=== PATIENT | female | born 1995 | race Caucasian/White ===

== ENCOUNTER → 2017-08-02 | Outpatient (CLI) | payer BC ==
[~2017-08-02] MED LIST: BCPILLS PO
[2017-08-05 14:46] LABS: HERPES SIMPLEX CULT SOURCE GENITAL-VULVA; HERPES SIMPLEX VIRUS CULT ISOLATED (NOT ISOLATED)
[2017-08-06 07:24] LABS: HSVTYPE1REFLEX ONLY!DON'T ORDR ISOLATED (NOT ISOLATED); HSVTYPE2REFLEX ONLY!DON'T ORDR NOT ISOLATED (NOT ISOLATED)
== END | disposition home or self-care (01) ==
LOC: C.LABSPEC 15:35
PROVIDERS: ATTEND Obstetrics & Gynecology
DX: A60.00 Herpesviral infection of urogenital system, unspecified (principal)

== ENCOUNTER 2019-01-02 22:00 | Inpatient (IN) ==
[2019-01-02] MEDS ORDERED: OXYTOCIN 30 UNITS/500 ML BAG IV PRN (22:46)
[2019-01-02] MEDS ORDERED: LACTATED RINGER'S 1,000 ML IV PRN (22:46)
[2019-01-02 23:06] LABS: Hemoglobin 11.2 g/dL (12.0-16.0); Mean Corpuscular Volume 89.7 fL (80-100); Mean Platelet Volume 9.3 fL (7.4-10.4); Platelet Count 220 K/uL (130-400); RDW Coefficient of Variation 13.7 % (11.5-14.5); RDW Standard Deviation 44.9 fL (36.4-46.3); Red Blood Count 3.68 M/uL (4.2-5.4); White Blood Count 17.01 K/uL (4.8-10.8)
[2019-01-02 23:09] LABS: Mean Corpuscular Hgb Conc 33.9 g/dL (32-36)
[2019-01-03] MEDS ORDERED: PROMETHAZINE HCL INJ 25 MG/ML 1 ML VIAL IM STA (01:01)
[2019-01-03] MEDS ORDERED: MoRPHine SULFATE 10 MG/ML CARP/VIAL IM STA (01:01)
--- NOTE | 2019-01-03 01:13 | History & Physical Report ---
Date of Service January 03, 2019 Assessment & Plan (1) labor: I had extensive discussion with patient regarding exam findings and prognosis. I called MFM on-call at [place] (Dr Maravilla) for consultation and advice. Patient is pre-viable, and NICU at [place] does not accept babies until at least 23 weeks if they are large enough. Steroids are not advised until 23w. If PPPROM occurs without imminent delivery, Dr Maravilla recommends antibiotics. Patient was offered conservative management - to admit and observe labor. Patient was offered transfer at [place], but we also discussed that there will really be nothing to do until she is beyond the 23w threshold. If the baby is still breech at 23w, this would involve a classical section. Patient was also offered augmentation of labor with AROM and possibly pitocin/cytotec - she declines at this time. She would like to just monitor symptoms for now. Requesting pain medication - morphine/phenergan IM given. Questions answered for patient, FOB and patient's mother. Discussed that I expect her labor to continue, and anticipate she will experience SROM at some point. (2) 22 weeks gestation of : History of Present Illness Chief Complaint: Vaginal bleeding Primary Care Provider: NO PCP 23yo @ 22 11/24 presented to L&D with pelvic cramping and vaginal bleeding. This has been worsening throughout the day, started after she had intercourse. No leaking of fluid. + movement. is complicated by short cervix diagnosed at 20w anatomy ultrasound - she was started on vaginal progesterone with plans to recheck at 24w office visit. She additionally has h/o genital herpes, depression/anxiety, ASCUS pap with + HR HPV. Allergies Allergy/AdvReac Type Severity Reaction Status Date / Time No Known Allergies Allergy Unknown Verified 01/02/19 23:02 Home Medications Home Medications Medication Instructions Recorded Confirmed Type vit-iron fum-folic ac 1,000 mg PO DAILY 01/03/19 01/03/19 History [ Vitamin] progesterone micronized 200 mg PO DAILY 01/03/19 01/03/19 History Patient History Medical History [place] teeth extracted Social History Preferred Language: Uzbek Communication Ability: Effective Internal Sales Required: No Beliefs That Will Affect Care: None marital status: Single Current Living Situation: Spouse Other Information That Helps Us Care for You: No Feels Safe at Home: Yes Safety Concerns: Feels Safe At This Time Smoking Status: Never smoker Hx Alcohol Use: No Hx Substance Use: No Review of Systems All systems reviewed & are unremarkable except as noted in HPI & below Physical Exam Vital Signs (Past 24 Hours): Last Vital Signs Pulse 114 H 01/02/19 22:20 Resp 18 01/03/19 00:42 BP 129/69 01/02/19 22:20 Physical Exam: Gen AAOx3 NAD CV RRR L CTAB Abd soft gravid NTTP Ext no edema Sterile speculum exam: bulging membranes in vagina, scant bleeding Gentle digital exam: no palpable cervix around membranes Limited bedside ultrasound: breech, anterior placenta. Fetus is intrauterine. Cervix appears 2-3cm dilated, with approx 4-5cm of bulging membranes in vagina. FHT 140s. (1) labor labor trimester: second trimester labor delivery status: w [facility] delivery Qualified Code(s): O60.02 - labor without delivery, second trimester
[2019-01-03] MEDS: LACTATED RINGER'S 1,000 ML IV SCH ×3 (03:15→21:24)
--- NOTE | 2019-01-03 09:07 | Obstetrical Progress Note ---
Date of Service January 03, 2019 Assessment & Plan (1) 22 weeks gestation of : Membranes seem to be bulging further into vagina, no ROM yet. I discussed with patient that it is difficult to predict what will happen - but I suspect that her membranes will probably rupture, it is likely just a matter of time. Given her continued bleeding and worsening of bulging membranes, recommend continued observation for at least 24-36h for previable labor. Patient is agreeable to this. (2) labor: Subjective Patient slept overnight. This morning, she feels that the cramping has resolved, but she continues to have period-like bleeding per vagina. No leaking of fluid. Somewhat hungry. She is ambulating to the bathroom and has decided against staying in trendelenberg position in bed. She feels better to sit up. Physical Exam Vital Signs (Past 24 Hours): Last Vital Signs Temp 36.6 C 01/03/19 07:15 Pulse 86 01/03/19 07:06 Resp 20 01/03/19 07:15 BP 102/55 L 01/03/19 07:06 Physical Exam: Gen AAO x3 NAD CV RRR L CTAB Abd soft gravid NTTP Ext no edema Limited bedside ultrasound: cephalic, anterior placenta. Membranes bulging into vagina - appear to be worsened since yesterday. The head is sitting at the dilated cervix. This appears to be dilated 3-4 cm. No parts in vagina. + cardiac activity and + movement. (1) labor labor trimester: second trimester labor delivery status: without delivery Qualified Code(s): O60.02 - labor without delivery, second trimester
--- NOTE | 2019-01-03 15:15 | Pediatric Consultation ---
Date of Consultation January 03, 2019 Pediatric consultation note History of Present Illness Reason for Consultation: PPPROM of 22 week 3 days Requesting Physician: Dr. Yaneli MD Attending Physician: Adriana Boogie DO History of Present Illness Ms. Gonzáles is a 23 YO F who presents to [facility] at 22w3d with PPPROM. [facility] OBGYN consulting Pediatric hospital medicine for further management of potential extreme prematurity. I had an extensive discussion with Ms. Gonzáles, FOB (Pancho) and Ms. Gonzáles's mother (Conrad). They do know the sex of the baby (male) and a name (Jesus). I discussed with them that I had spoke with [facility] who confirmed that resuscitation is not attempted on newborns < 23 weeks gestational age at their institution. Father was curious to know why this was the case and I spoke at length about lung development being extremly underdeveloped before 23 weeks. There are few exceptions at other instiutions resucitating 22 weekers, however these children have extremly high mortality and morbidity. I discussed the potential morbiditiy problems with parents and they agree for no resucitation at this time. I again stressed that our institution policy is for no recusitation in non-viable infants. I spoke about after and developed an after plan of having Jesus stay in the room with mother and father, regardless if he is born with a heart rate or not. If he is born with a heart rate, we will not have any monitors or invasive procedures. We will listen for a heart rate every shift. I spoke with Dr. Mckeon of [facility] who provided me with their hospital policy for previable infants. In this policy, they offer morphine and lorazapam PRN for aganal breathing, respiratory distress for pallative option. They use 0.15 mg/kg dosing for morphine PRN. I discussed with our pharmacy who noted they could delivery concentration of morphine of 0.05 mg/kg (pressuming weights ~ 300 grams). Discussed this with mother and father and they do want to give this medication PRN for any signs of distress. Therefore will given q1H PRN as needed for distress. On review of mother's chart, unknown LMP. Dating by U/S at 11 weeks. Course notable for shorten cervix at 20 weeks. Discussed case with Dr. Havoic who was in agreeance with plan. [facility]. Allergies Allergy/AdvReac Type Severity Reaction Status Date / Time No Known Allergies Allergy Unknown Verified 01/02/19 23:02 Home Medications Home Medications Medication Instructions Recorded Confirmed Type vit-iron fum-folic ac 1,000 mg PO DAILY 01/03/19 01/03/19 History [ Vitamin] progesterone micronized 200 mg PO DAILY 01/03/19 01/03/19 History Patient History Medical History [place] teeth extracted Social History Preferred Language: Slovak Communication Ability: Effective Alodize Machine Helper Required: No Beliefs That Will Affect Care: None marital status: Single Current Living Situation: Spouse Other Information That Helps Us Care for You: No Feels Safe at Home: Yes Safety Concerns: Feels Safe At This Time Smoking Status: Never smoker Hx Alcohol Use: No Hx Substance Use: No Physical Exam Vital Signs (Past 24 Hours): Temp Pulse Resp BP 01/03/19 14:56 99 H 99/55 L 01/03/19 11:22 91 H 107/57 L 01/03/19 07:15 36.6 C 20 01/03/19 07:06 86 102/55 L 01/03/19 05:00 18 01/03/19 04:00 18 01/03/19 03:51 18 01/03/19 02:58 36.8 C 84 18 105/56 L 01/03/19 02:00 18 01/03/19 01:00 18 01/03/19 00:42 18 01/03/19 00:00 18 01/02/19 23:00 36.8 C 18 01/02/19 22:20 114 H 18 129/69 Physical Exam: no exam preferred Results & Data Medications Administered Lactated Ringer's (Lr) 1,000 mls @ 999 mls/hr IV .Q1H1M PRN PRN Reason: (Pre-Anesthesia) Stop: 02/01/19 22:45 Last Infusion: 01/03/19 03:15 Dose: 0 mls/hr Documented by: [id number] Infusion: 01/02/19 23:30 Dose: 125 mls/hr Documented by: [id number] Admin: 01/02/19 22:58 Dose: 999 mls/hr Documented by: [id number] Lactated Ringer's (Lr) 1,000 mls @ 125 mls/hr IV .Q8H BRAXTON Stop: 01/04/19 22:59 Last Admin: 01/03/19 12:30 Dose: 125 mls/hr Documented by: [id number] Infusion: 01/03/19 11:15 Dose: 125 mls/hr Documented by: [id number] Infusion: 01/03/19 10:18 Dose: 125 mls/hr Documented by: [id number] Admin: 01/03/19 03:15 Dose: 125 mls/hr Documented by: [id number]
--- NOTE | 2019-01-03 15:33 | Obstetrical Progress Note ---
Date of Service January 03, 2019 Assessment & Plan (1) labor: The patient is becoming more uncomfortable. She is requesting pain medication. Prior to giving the pain medication I have suggested that the patient talk with Dr. José Ordonez, senior advocate environmental economist for the hospital today. Dr. Ordonez will talk to the patient and the father of the baby concerning the viability of a 22-1/2-week gestational age infant. Resuscitation goals will be discussed with the patient so that a plan of treatment will be established. All questions answered of the patient. Subjective Contractions becoming more painful, some leaking of fluid, questions about what happens after the baby is born Physical Exam Vital Signs (Past 24 Hours): Last Vital Signs Temp 36.6 C 01/03/19 07:15 Pulse 99 H 01/03/19 14:56 Resp 20 01/03/19 07:15 BP 99/55 L 01/03/19 14:56 Genitourinary: Gentle digital examination shows bulging membranes in the vagina with vertex palpable within the sac sac appears to be intact despite leakage of fluid with full cervical dilatation (1) labor labor trimester: second trimester labor delivery status: without delivery Qualified Code(s): O60.02 - labor without delivery, second trimester
[2019-01-04] MEDS: BUTORPHANOL TARTRATE 2 MG/ML VIAL IV PRN ×3 (02:44→08:22)
[2019-01-04] MEDS: LACTATED RINGER'S 1,000 ML IV SCH (05:54)
[2019-01-04] MEDS ORDERED: miSOPROStol 200 MCG TAB PR ONE (07:03)
--- NOTE | 2019-01-04 07:08 | Obstetrical Progress Note ---
Date of Service January 04, 2019 Assessment & Plan (1) labor: -membranes ruptures sometime over the last several hours - fetus mostly through cervix on U/S - need to increase uterine activity to complete delivery - all questions answered of the patient - will give cytotec 400mcg NH - peds aware Subjective Continued cramping and bleeding Physical Exam Vital Signs (Past 24 Hours): Last Vital Signs Temp 36.8 C 01/04/19 05:49 Pulse 81 01/04/19 05:49 Resp 18 01/04/19 05:49 BP 100/58 L 01/04/19 05:49 Genitourinary: Amniotic sac no longer palpable, just parts consistent with ROM. Abdominal U/S shows cardiac activity (1) labor labor trimester: second trimester labor delivery status: without delivery Qualified Code(s): O60.02 - labor without delivery, second trimester
--- NOTE | 2019-01-04 08:39 | Obstetrical Progress Note ---
Date of Service January 04, 2019 Shift loom changer at 8:30 in the morning patient is feeling increasingly uncomfortable fetus was apparently in the vagina but she was unable to push we will reassess her at 9 AM the patient is opted for non-resuscitative measures as the baby is under 23 weeks by early ultrasound date this is been the plan with the pediatrics and OB teams prior to shift change or loom changer and I will continue this plan Physical Exam Vital Signs (Past 24 Hours): Last Vital Signs Temp 37 C 01/04/19 07:04 Pulse 96 H 01/04/19 07:04 Resp 20 01/04/19 07:04 BP 106/66 01/04/19 07:04
--- NOTE | 2019-01-04 10:28 | Anesthesiology Consultation ---
Date of Service January 04, 2019 Assessment & Plan (1) Encounter for pre-operative examination: Chart Review Chart Review: Acceptable Risk for Surgery History Height/Weight Height: 5 ft 5 in Weight: 69.853 kg Allergies Allergy/AdvReac Type Severity Reaction Status Date / Time No Known Allergies Allergy Unknown Verified 01/02/19 23:02 Medications Home Medications Medication Instructions Recorded Confirmed Last Taken vit-iron fum-folic ac 1,000 mg PO DAILY 01/03/19 01/03/19 01/02/19 [ Vitamin] progesterone micronized 200 mg PO DAILY 01/03/19 01/03/19 01/02/19 Active Medications Generic Name Dose Route Start Last Admin Trade Name Freq PRN Reason Stop Dose Admin Butorphanol Tartrate 1 mg 01/04/19 02:33 01/04/19 08:22 Stadol IV 02/03/19 02:32 1 mg Q1H PRN Administration Pain Lactated Ringer's 1,000 mls @ 999 mls/hr 01/02/19 22:46 01/03/19 03:15 Lr IV 02/01/19 22:45 Infused .Q1H1M PRN Infusion (Pre-Anesthesia) Lactated Ringer's 1,000 mls @ 125 mls/hr 01/02/19 23:00 01/04/19 05:54 Lr IV 01/04/19 22:59 125 mls/hr .Q8H BRAXTON Administration Past Surgical History Surgical History [place] teeth extracted Social History Smoking Status: Never smoker Hx Alcohol Use: No Hx Substance Use: No Physical Exam Vital Signs Last Vital Signs Temp 36.9 C 01/04/19 09:58 Pulse 79 01/04/19 09:58 Resp 20 01/04/19 09:58 BP 109/60 01/04/19 09:58 Testing Laboratory Results 01/02/19 22:54
[2019-01-04] MEDS ORDERED: fentaNYL citrate 100 MCG/2 ML VIAL ONE (10:38)
[2019-01-04] MEDS ORDERED: MIDAZOLAM HCL 1 MG/ML 2ML VIAL ONE (10:38)
[2019-01-04] MEDS ORDERED: fentaNYL citrate 100 MCG/2 ML VIAL IV PRN (11:14)
[2019-01-04] MEDS ORDERED: KETOROLAC 30 MG/ML VIAL IV PRN (11:14)
[2019-01-04] MEDS ORDERED: ATROPINE SULFATE 0.1 MG/ML 10ML SYR IV PRN (11:14)
[2019-01-04] MEDS ORDERED: ONDANSETRON INJ 2 MG/ML 2 ML VIAL IV PRN (11:14)
[2019-01-04] MEDS ORDERED: METOCLOPRAMIDE HCL INJ 5 MG/ML 2 ML VIAL ONE (11:18)
[2019-01-04] MEDS ORDERED: ONDANSETRON INJ 2 MG/ML 2 ML VIAL ONE (11:18)
[2019-01-04] MEDS ORDERED: LIDOCAINE HCL 2% MPF (LOCAL) 5 ML VIAL INFIL ONE (11:18)
[2019-01-04] MEDS ORDERED: PROPOFOL IV EMULSION 10 MG/ML 20 ML VIAL IV ONE (11:18)
[2019-01-04] MEDS ORDERED: SUCCINYLCHOLINE CHLORIDE 20 MG/ML 10 ML VIAL ONE (11:18)
--- NOTE | 2019-01-04 11:20 | Procedure Note ---
Vaginal Delivery Summary Date of Service January 04, 2019 22-week gestational age labor. The patient has elected nonaggressive management and she ended up pushing with spontaneously ruptured membranes or possibly a for bag the patient then delivered a baby in vertex position pediatrics was in attendance there was no tearing. Baby was born alive. On exam the placenta was retained we did assess for 30 minutes and is still retained. We subsequently took her back to the operating room where a separate note will be dictated at the end of the delivery sponge and instrument counts were correct estimated blood loss 200 mL
[2019-01-04] MEDS ORDERED: OXYCODONE/ACETAMINOPHEN 5mg/325mg TAB PO PRN (11:22)
[2019-01-04] MEDS ORDERED: ACETAMINOPHEN 325 MG TAB PO PRN (11:22)
[2019-01-04] MEDS ORDERED: BISACODYL 10 MG SUPP PR PRN (11:22)
[2019-01-04] MEDS ORDERED: HYDROCORTISONE ACETATE 25 MG SUPP PR PRN (11:22)
[2019-01-04] MEDS ORDERED: BENZOCAINE 20% AER SPR 82.5 GM CAN EXT PRN (11:22)
[2019-01-04] MEDS ORDERED: DIPHTHERIA/TETANUS/PERTUSSIS 0.5 ML SYR/VIAL IM ONE (11:22)
[2019-01-04] MEDS ORDERED: SUPERCREAM 0.870% 15 GM JAR EXT PRN (11:22)
[2019-01-04] MEDS ORDERED: OXYTOCIN 30 UNITS/500 ML BAG IV PRN (11:22)
[2019-01-04] MEDS ORDERED: IBUPROFEN 600 MG TAB PO PRN (11:22)
--- NOTE | 2019-01-04 11:22 | Operative Report ---
Post Operative Report Pre & Post Diagnosis Operation Date: 01/04/19 10:40 Pre-Op Diagnosis: Manual Removal of Placenta and curettage under General Anesthesia Post-Op Diagnosis: Same Procedure Operation Date: 01/04/19 10:40 Actual Procedures p Exam Under Anesthesia(Not Applicable) - Allison Cantu MD, FACOG Surgeon Allison Cantu MD, FACOG Coagulating Drying Supervisor none Estimated Blood Loss 500 Findings Consistent with Post-Op Diagnosis Specimens placenta Description of Procedure Patient taken to the operating room prepped and draped in dorsal lithotomy position IV Ancef given preoperatively. Uterus exam and the placenta was retained. The uterus was able to gain entry with 2 fingers and I was able to remove the placenta in multiple pieces. I did feel at the end that all the placenta had been removed I performed a brief sharp curettage and was unable to extract more tissue. IV Pitocin was started by anesthesia and bleeding improved sponge and instrument counts were I attest to the content of the Intraoperative Record and any orders documented therein. Any exceptions are noted below.
[2019-01-04] MEDS ORDERED: OXYTOCIN 20 UNITS in LACTATED RINGER'S 1,000 ML IV SCH (12:00)
--- NOTE | 2019-01-04 12:08 | Anesthesiology Progress Note ---
Date of Service January 04, 2019 Anesthesia Post Procedure Vital Signs Vital Signs: Temp Pulse Resp BP Pulse Ox 01/04/19 12:04 123 H 91 01/04/19 12:03 109 H 97 01/04/19 11:59 107 H 20 119/68 01/04/19 11:58 105 H 98 01/04/19 11:53 100 H 98 01/04/19 11:48 96 H 20 116/64 97 01/04/19 11:43 89 98 01/04/19 11:39 106 H 20 109/60 01/04/19 11:38 99 H 98 01/04/19 11:33 102 H 98 01/04/19 11:31 37 C 125 H 20 103/56 L 01/04/19 11:28 134 H 98 01/04/19 10:29 96 H 118/66 01/04/19 09:58 36.9 C 79 20 109/60 01/04/19 07:04 37 C 96 H 20 106/66 01/04/19 05:49 36.8 C 81 18 100/58 L 01/04/19 05:00 18 01/04/19 04:00 18 01/04/19 03:00 18 01/04/19 02:14 92 H 113/61 01/04/19 02:00 18 01/04/19 00:00 18 01/03/19 23:01 97 H 112/67 01/03/19 22:59 36.9 C 18 01/03/19 22:00 18 01/03/19 21:00 18 01/03/19 20:00 18 01/03/19 19:15 37.1 C 96 H 18 107/58 L 01/03/19 14:56 37.1 C 99 H 20 99/55 L Notes Mental Status: alert / awake / arousable Patient Amnestic to Procedure: Yes Nausea / Vomiting: adequately controlled Pain: adequately controlled Airway Patency, RR, SpO2: stable & adequate BP & HR: stable & adequate Hydration State: stable & adequate Anesthetic Complications: no major complications apparent
[2019-01-04 13:45] VITALS: O2SAT 98
[2019-01-04] MEDS ORDERED: CEFAZOLIN 1000MG 1,000 MG/7.5 ML SYR IV SCH (18:00)
--- NOTE | 2019-01-04 19:08 | Obstetrical Progress Note ---
Date of Service January 04, 2019 Subjective Cervix still 7 cm unchanged the cervical anterior lip is more swollen there is no further descent. heart rate is category 1 I did discuss with the patient we could continue to push the Pitocin they IUPC fell out at the previous exam however it was documenting excellent contractions and Pitocin is not changed at this stage I recommended primarily because she is failure to progress at this stage and I did discuss we could wait 2 more hours and recheck she agrees with the idea of section now Risks of bleeding infection injury to bowel bladder ureter vessels baby deep vein thrombosis and pulmonary embolus were discussed option of continuing labor was discussed Physical Exam Vital Signs (Past 24 Hours): Last Vital Signs Temp 37.0 C 01/04/19 14:44 Pulse 86 01/04/19 14:44 Resp 20 01/04/19 14:44 BP 107/53 L 01/04/19 14:44 Pulse Ox 98 01/04/19 13:43
[2019-01-04 19:10] VITALS: BP 97/56; PULSE 88
[2019-01-04] MEDS ORDERED: LACTATED RINGER'S 1,000 ML IV SCH (19:15)
--- NOTE | 2019-01-04 19:17 | Obstetrical Progress Note ---
Date of Service January 04, 2019 Subjective Please ignore last note entered just a few moments ago this was on the incorrect patient that information is all invalid patient would like to be discharged home tonight after 2 doses of Ancef seems reasonable we will arrange for follow-up Physical Exam Vital Signs (Past 24 Hours): Last Vital Signs Temp 37.0 C 01/04/19 14:44 Pulse 88 01/04/19 19:10 Resp 20 01/04/19 14:44 BP 97/56 L 01/04/19 19:10 Pulse Ox 98 01/04/19 13:43
[2019-01-04 19:21] VITALS: TEMP 98.2
[2019-01-04 19:27] LABS: Hematocrit (blood only) 22.3 % (37-47); Hemoglobin 7.6 g/dL (12.0-16.0); Mean Corpuscular Hgb Conc 34.1 g/dL (32-36); Mean Corpuscular Volume 90.3 fL (80-100); Platelet Count 196 K/uL (130-400); RDW Coefficient of Variation 13.8 % (11.5-14.5); Red Blood Count 2.47 M/uL (4.2-5.4); White Blood Count 17.81 K/uL (4.8-10.8)
[2019-01-04 19:32] LABS: Basophils # (auto) 0.03 K/uL (0-0.2); Basophils % (auto) 0.2 %; Eosinophils # (auto) 0.05 K/uL (0-0.5); Eosinophils % (auto) 0.3 %; Immature Granulocytes # (auto) 0.08 K/uL (0.00-0.02); Immature Granulocytes % (auto) 0.4 %; Lymphocytes # (auto) 2.12 K/uL (1.2-3.4); Lymphocytes % (auto) 11.9 %; Monocytes # (auto) 0.91 K/uL (0.11-0.59); Monocytes % (auto) 5.1 %; Neutrophils # (auto) 14.62 K/uL (1.4-6.5); Neutrophils % (auto) 82.1 %; RBC Morphology Unremarkable
[2019-01-04] MEDS ORDERED: DOCUSATE SODIUM 100 MG CAP PO SCH (21:00)
[2019-01-05] MEDS ORDERED: CITRIC ACID/SODIUM CITRATE 15 ML UDC PO SCH (06:00)
--- NOTE | 2019-01-05 07:18 | Discharge Summary ---
Date of Service January 05, 2019 Patient was admitted by Dr. Arteaga with a shortened cervix with vaginal bleeding and pelvic cramping it was determined that there was bulging membranes at that time patient was observed in labor and delivery and then progressed to fully dilated. Membranes ruptured spontaneously she delivered a live fetus at 22 weeks gestational age. At that time the fetus was assessed by pediatrics but there was a plan for nonintervention due to extreme prematurity the baby did pass several hours later The patient's course was complicated by retained placenta and hemorrhage and required manual removal of placenta and curettage after the procedure at this stage the patient then received a course of antibiotics and then a repeat one 8 hours later that time in the evening of January 04 the patient wished to go home at that time she was ambulating well she was not lightheaded despite a hemoglobin of 7.6 her pain was well controlled and she had minimal bleeding Admission HPI Per Admitting Provider 23yo @ 22 3 presented to L&D with pelvic cramping and vaginal bleeding. This has been worsening throughout the day, started after she had intercourse. No leaking of fluid. + movement. is complicated by short cervix diagnosed at 20w anatomy ultrasound - she was started on vaginal progesterone with plans to recheck at 24w office visit. She additionally has h/o genital herpes, depression/anxiety, ASCUS pap with + HR HPV. Admission Exam (Per Admitting) Constitutional WD/WN, vitals as above Cardiovascular RRR, no murmur, no edema Gastrointestinal (Abdomen) normal bowel sounds, soft, nontender, no hepatosplenomegaly Genitourinary Uterus firm and nontender Discharge Data Procedures Performed Operation Date: 01/04/19 10:40 Actual Procedures p Dilatation and Curettage(Not Applicable) - Allison Cantu MD, FACOG Discharge Instructions The patient wished to go home we discussed follow-up when to call back we discussed supplementation with iron and stool softeners we discussed concerns for possible depression and when to follow-up
[2019-01-05] MEDS ORDERED: CEFAZOLIN 2000MG 2,000 MG/15 ML SYR IV SCH (07:30)
[2019-01-05] MEDS ORDERED: BISACODYL 5 MG TABEC PO SCH (20:00)
== END 2019-01-04 22:05 | disposition home or self-care (01) | DRG 806 ==
LOC: OPB 22:00 → 4S1 22:01

== ENCOUNTER 2021-05-01 23:37 | Inpatient (IN) ==
[2021-05-01] MEDS ORDERED: OXYTOCIN 30 UNITS/500 ML BAG IV PRN (23:59)
[2021-05-02] MEDS ORDERED: BUPIVACAINE 0.25% 30 ML VIAL ONE
[2021-05-02] MEDS ORDERED: ePHEDrine sulfate 50 MG/ML AMP ONE
[2021-05-02] MEDS ORDERED: fentaNYL 2MCG/ML ROPIVACAINE 1.25MG/ML 100 ML BAG EPI ONE
[2021-05-02] MEDS ORDERED: SODIUM CHLORIDE 0.9% INJ 10 ML VIAL ONE
[2021-05-02] MEDS ORDERED: fentaNYL citrate 100 MCG/2 ML VIAL ONE
--- NOTE | 2021-05-02 00:04 | History & Physical Report ---
Date of Service May 02, 2021 Assessment & Plan (1) Normal labor and delivery: Plan: Admit, epidural requested by patient, anticipate History of Present Illness Chief Complaint: 25yo at 40w0d with ctx Q4min, no LOF no VB +FM. H/O 22wk PTD and demise / s/p cerclage removed at 36wk with this . Primary Care Provider: NO PCP Allergies Allergy/AdvReac Type Severity Reaction Status Date / Time No Known Drug Allergies Allergy Verified 04/30/21 08:31 Home Medications Medication Instructions Recorded Confirmed Type valacyclovir 500 mg tablet 500 mg PO BID PRN tab 01/29/20 04/30/21 History prenat.vits,darian,[id number] 1 tab PO DAILY 09/27/20 04/30/21 History Past Med/Surg History Medical History History of 22wk, PTD, dx with shortened cx and was on vaginal P4, had preconception MFM consult thereafter with plan if preg again, [facility], Heidi Pharyngitis of unknown anatomic location labor 22 wk, ptd, shortened cx, Suicidal ideation Varicella vaccination Surgical History H/O wisdom tooth extraction S/P dilatation and curettage Family History Father Suicide Other Dyslipidemia Hypertension Denies family history of Ovarian cancer Breast cancer Colorectal cancer Social History Smoking Status: Former smoker Tobacco Type: Cigarettes Cigarettes Per Day: 3; Second Hand Exposure: No; Hx Alcohol Use: Yes Alcohol Intake Frequency Comment: 1-3 drinks/week and 3 on the weekends. 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 Seatbelt Use: always Sunscreen Use: Yes Sexual Activity: has been sexually active within the last 12 months Assistive Devices: None Physical Exam Constitutional: WD/WN, vitals as above + in distress Eyes: PERRL, conjunctivae normal, anicteric sclerae ENMT: external ear and nose normal, oropharynx normal Neck: supple Respiratory: normal respiratory effort and able to speak in complete sentences; no respiratory distress Cardiovascular: Rate/Rhythm: regular rate and regular rhythm Extremities: + pedal edema Gastrointestinal (Abdomen): Gravid / AGA, nontender Musculoskeletal: no cyanosis or clubbing, extremities motor strength 5/5 Skin: no rashes, warm and dry Neurologic: patellar DTR's 2+ bilat, sensation intact Psychiatric: A+Ox3, euthymic affect Genitourinary: Speculum/Bimanual Exam: no vaginal lesions, no vaginal bleeding and uterus nontender OB Exam Abdomen: + vertex, + estimated weight (7) and + regular contractions (Q2-3) Manual OB Exam: + cervical dilation 9 cm, + cervical effacement 100%, + station + 1 and + amniotic fluid (No leaking evident) OB Exam Monitor Tracing: + external FHT monitor used, + external uterine monitor used and + category I Lymphatic: no cervical or axillary lymphadenopathy PG Care Time/CCT Total # of Minutes Spent Total Time Spent with Patient: Total time spent is greater than 50% in coordination of care (as documented) at patient's floor/unit and/or counseling patient: Coding Level of Care Code None Diagnoses Normal labor and delivery O80
[2021-05-02] MEDS: LACTATED RINGER'S 1,000 ML IV PRN ×2 (00:05→01:03)
[2021-05-02] MEDS ORDERED: fentaNYL 2MCG/ML ROPIVACAINE 1.25MG/ML 100 ML BAG EPI PRN (00:27)
[2021-05-02] MEDS ORDERED: NALOXONE HCL 1 MG in SODIUM CHLORIDE 0.9% 1000ML 1,000 ML IV PRN (00:27)
[2021-05-02] MEDS ORDERED: NALBUPHINE HCL INJ 10 MG/ML AMP IV PRN (00:27)
[2021-05-02] MEDS ORDERED: ONDANSETRON INJ 2 MG/ML 2 ML VIAL IV PRN (00:27)
[2021-05-02] MEDS ORDERED: diphenhydrAMINE 50 MG/ML VIAL IV PRN (00:27)
[2021-05-02] MEDS ORDERED: NALOXONE HCL 0.4 MG/1 ML VIAL/CARP IV PRN (00:27)
[2021-05-02] MEDS ORDERED: ePHEDrine sulfate 50 MG/ML AMP IV PRN (00:27)
[2021-05-02 00:28] LABS: Hematocrit (blood only) 36.6 % (37-47); Hemoglobin 12.1 g/dL (12.0-16.0); Mean Corpuscular Hemoglobin 27.3 pg (25-34); Mean Corpuscular Volume 82.4 fL (80-100); Mean Platelet Volume 10.5 fL (7.4-10.4); Platelet Count 179 K/uL (130-400); RDW Coefficient of Variation 15.3 % (11.5-14.5); RDW Standard Deviation 46.3 fL (36.4-46.3); Red Blood Count 4.44 M/uL (4.2-5.4)
--- NOTE | 2021-05-02 00:33 | Anesthesiology Consultation ---
Date of Service May 02, 2021 Assessment & Plan (1) Encounter for pre-operative examination: Chart Review Chart Review: Patient NOT seen in Pre Admission Testing and Acceptable Risk for Labor Epidural Consults Requested none History Height/Weight Height: 5 ft 5 in Weight: 90.718 kg Allergies Allergy/AdvReac Type Severity Reaction Status Date / Time No Known Drug Allergies Allergy Verified 04/30/21 08:31 Medications Home Medications Medication Instructions Recorded Confirmed Last Taken valacyclovir 500 mg tablet 500 mg PO BID PRN tab 01/29/20 05/02/21 05/01/21 prenat.vits,darian,bhj-yapq-lpsir 1 tab PO DAILY 09/27/20 05/02/21 05/01/21 Past Medical History Medical History History of 22wk, PTD, dx with shortened cx and was on vaginal P4, had preconception MFM consult thereafter with plan if preg again, [facility], [place] Pharyngitis of unknown anatomic location labor 22 wk, ptd, shortened cx, Suicidal ideation Varicella vaccination Exercise / Class Metabolic Activity II 4-5 Yardwork/Stairs/Walk up hill Past Family History Family History Father Suicide Other Dyslipidemia Hypertension Denies family history of Ovarian cancer Breast cancer Colorectal cancer Past Surgical History Surgical History H/O wisdom tooth extraction S/P dilatation and curettage Past Anesthesia History No Hx of Anesthesia Complications and No Family Hx of Anesthesia Complications History of PONV No Hx of PONV and No Hx of Motion Sickness Social History Smoking Status: Never smoker tobacco type: cigarettes Smoking cigarettes per day: 3 Hx Alcohol Use: No Hx Substance Use: No Physical Exam Vital Signs Last Vital Signs Temp 36.8 C 05/02/21 00:06 Pulse 93 H 05/02/21 00:55 Resp 18 05/01/21 23:54 BP 135/91 05/02/21 00:55 Pulse Ox 98 05/02/21 00:54 Testing Laboratory Results 05/02/21 00:10
[2021-05-02 00:41] LABS: Mean Corpuscular Hgb Conc 33.1 g/dL (32-36)
--- NOTE | 2021-05-02 08:46 | Anesthesia Procedure Note ---
Date of Service May 02, 2021 Anesthesia Post Epidural Note Vital Signs Vital Signs: Temp Pulse Resp BP Pulse Ox 37.2 C 102 H 20 108/74 96 05/02/21 07:12 05/02/21 08:37 05/02/21 08:37 05/02/21 08:37 05/02/21 08:14 Pain Intensity Lower Abdomen: Pain Intensity: 2 Notes Mental Status: alert / awake / arousable and participated in evaluation Nausea / Vomiting: adequately controlled Pain: adequately controlled Airway Patency, RR, SpO2: stable & adequate BP & HR: stable & adequate Hydration State: stable & adequate Neuraxial Anesthesia: was administered and sensory block is resolving Anesthetic Complications: no major complications apparent and Pt Satisfied with anesthetic care Epidural: Removed without complications and With tip intact
[2021-05-02] MEDS ORDERED: bisacodyL 10 MG SUPP PR PRN (09:15)
[2021-05-02] MEDS ORDERED: BENZOCAINE 20% AER SPR 82.5 GM CAN EXT PRN (09:15)
[2021-05-02] MEDS ORDERED: OXYTOCIN 30 UNITS/500 ML BAG IV PRN (09:15)
[2021-05-02] MEDS ORDERED: SUPERCREAM 0.870% 15 GM JAR EXT PRN (09:15)
[2021-05-02] MEDS ORDERED: HYDROCORTISONE ACETATE 25 MG SUPP PR PRN (09:15)
[2021-05-02] MEDS ORDERED: DIPHTHERIA/TETANUS/PERTUSSIS 0.5 ML SYR/VIAL IM ONE (09:15)
[2021-05-02] MEDS ORDERED: ACETAMINOPHEN 325 MG TAB PO PRN (09:15)
--- NOTE | 2021-05-02 10:35 | Delivery Summary ---
Vaginal Delivery Summary Date of Service May 02, 2021 Pre-operative Diagnosis: at 40 weeks hx of cerclage labor Post-operative Diagnosis: same Procedure: epidural arom second degree laceration repair EBL: 400cc Anesthesia: epidural Procedure: The patient was admitted to labor and delivery in active labor at 9cm. She underwent an epidural and then arom for clear fluid. The then became complete and labored down. The patient pushed for about one hour to deliver a viable female in cezar position. The nose and mouth were bulb suctioned on the perineum and the rest of the infant was then delivered without difficulty. The baby was vigorous. The nose and mouth were again bulb suctioned and the was placed in the maternal abdomen for drying and attention. Cord was clamped and cut at one minute of life. Cord blood and segment obtained. Placenta delivered spontaneous, intact with a three vessel cord. Cervix/sulci/rectum were intact. A second degree perineal laceration was repaired in the normal standard fashion. Hemostasis obtained with dilute pitocin and fundal massage. Apgars were 8/9. Mother and baby doing well at the end of the delivery. 2020 Vaginal Delivery Summary and 2nd Degree LAC [facility] [place] Vaginal Delivery Charge Delivery Type Details: and 2nd Degree LAC
[2021-05-02] MEDS: IBUPROFEN 600 MG TAB PO PRN ×2 (12:02→21:15)
[2021-05-02] MEDS: DOCUSATE SODIUM 100 MG CAP PO SCH (21:15)
[2021-05-03] MEDS: IBUPROFEN 600 MG TAB PO PRN ×4 (05:39→23:14)
[2021-05-03 06:59] LABS: Hematocrit (blood only) 26.6 % (37-47); Hemoglobin 8.5 g/dL (12.0-16.0); Mean Corpuscular Hemoglobin 26.9 pg (25-34); Mean Corpuscular Volume 84.2 fL (80-100); Mean Platelet Volume 10.2 fL (7.4-10.4); Platelet Count 157 K/uL (130-400); RDW Coefficient of Variation 15.5 % (11.5-14.5); RDW Standard Deviation 48.2 fL (36.4-46.3); Red Blood Count 3.16 M/uL (4.2-5.4); White Blood Count 13.63 K/uL (4.8-10.8)
--- NOTE | 2021-05-03 08:15 | Obstetrical Progress Note ---
Date of Service <Joleen Dodd DO - Last Filed: 05/03/21 08:14> May 03, 2021 Assessment & Plan <Joleen Dodd DO - Last Filed: 05/03/21 08:14> (1) Encounter for care and examination after delivery: 25 yo post op day1 from [facility] cerclage, doing well. -Continue routine post care. -vital signs reviewed and WNL (Tmax 36.5) -Blood Type A+, GBS-, Rubella immune -Encourage ambulation, monitor and control pain with Motrin, tylenol PRN, resume regular diet, monitor lochia -encourage breast feeding -hemoglobin 12.1 (05/02) -discussed d/c, patient considering afternoon Day #:: 1 <Zoey Cruz MD, FACOG - Last Filed: 05/03/21 08:21> (1) Encounter for care and examination after delivery: Subjective <Joleen Dodd DO - Last Filed: 05/03/21 08:14> Ambulation: ambulating normally Voiding: no voiding problems Passing Gas:: Yes Diet Tolerance:: regular diet Lochia:: Small Feeding Type:: breast feeding Current Pain Level(1-10): 2 (pain well controlled on medication) Review of Systems Denies fever, chills, sweats Denies shortness of breath, difficulty breathing, chest pain, palpitations, chest pressure. Denies breast pain. Denies dysuria. Denies headache or changes in vision. Physical Exam <DO Dean Hoffman Last Filed: 05/03/21 08:14> General: Alert, oriented. No acute distress. Cardiac: Regular rate and rhythm, no murmurs/rubs/gallops. Respiratory: Clear to auscultation bilaterally a/p, no wheezes/rales/rhonchi. No increased work of breathing. Symmetrical chest rise. No respiratory distress. Abdomen: Soft, nontender, nondistended. Bowel sounds present. Uterus: Uterine fundus firm, palpable at umbilicus. Lower Extremities: No lower extremity edema or swelling. No deep calf pain. Navneet's negative bilaterally.. Results & Data ([facility]) <Joleen Dodd DO - Last Filed: 05/03/21 08:14> Vital Signs (Past 12 Hours) Vital Signs Temp Pulse Resp BP Pulse Ox 05/03/21 05:17 36.5 C 81 16 107/66 98 05/02/21 22:59 36.8 C 82 14 98/63 L 97 Laboratory Results 05/03/21 Range/Units 06:11 WBC 13.63 H (4.8-10.8) K/uL RBC 3.16 L (4.2-5.4) M/uL Hgb 8.5 L D (12.0-16.0) g/dL Hct 26.6 L (37-47) % MCV 84.2 (80-100) fL MCH 26.9 (25-34) pg MCHC 32.0 (32-36) g/dL RDW Std Deviation 48.2 H (36.4-46.3) fL RDW Coeff of Adina 15.5 H (11.5-14.5) % Plt Count 157 (130-400) K/uL MPV 10.2 (7.4-10.4) fL Medications Administered Current Inpatient Medications Acetaminophen (Acetaminophen 325 Mg Tab) 650 mg PO Q6H PRN PRN Reason: Pain/ENGLISH/Fever Stop: 06/01/21 09:14 Benzocaine (Benzocaine 20% Aer Spr 82.5 Gm Can) 1 appln EXT PRN PRN PRN Reason: Perineal Discomfort Stop: 06/01/21 09:14 Last Admin: 05/02/21 14:37 Dose: 1 appln Documented by: Bisacodyl (Bisacodyl 5 Mg Tabec) 5 mg PO 1999 [facility] Stop: 05/03/21 20:01 Bisacodyl (Bisacodyl 10 Mg Supp) 10 mg OH DAILY PRN PRN Reason: No BM on 2nd post- day Stop: 06/01/21 09:14 Cocaine HCl (Supercream 0.870% 15 Gm Jar) 1 gm EXT BID PRN PRN Reason: Hemorrhoidal Inflammation Stop: 05/16/21 09:14 Docusate Sodium (Docusate Sodium 100 Mg Cap) 100 mg PO DAILY@ [facility] Stop: 06/01/21 20:59 Last Admin: 05/02/21 21:15 Dose: 100 mg Documented by: Hydrocortisone (Hydrocortisone Acetate 25 Mg Supp) 25 mg OH BID PRN PRN Reason: Hemorrhoidal Inflammation Stop: 06/01/21 09:14 Oxytocin (Pitocin) 30 units in 500 mls @ 333.333 mls/hr IV .Q1H30M PRN; Protocol PRN Reason: Bleeding Control Last Titration: 05/02/21 09:30 Dose: Infused Documented by: Ibuprofen (Ibuprofen 600 Mg Tab) 600 mg PO Q4H PRN PRN Reason: Pain/ENGLISH/Cramping/Fever Stop: 06/01/21 09:14 Last Admin: 05/03/21 05:39 Dose: 600 mg Documented by: Kalie Multivit/Strawberry/Iron/Folic Ac ( Vitamin 1 Tab) 1 tab PO DAILY@08 [place] Stop: 06/02/21 07:59 <Zoey Cruz MD, FACOG - Last Filed: 05/03/21 08:21> Co-Signing Physician Notes Resident Physician Supervision Note: I interviewed and examined the patient. Discussed with Dr. Dodd and agree with findings and plan as documented in the note. Any exceptions or clarifications are listed here: Patient doing well. Just ppd 1. Routine care. May desire d/c this pm if doing well. Documented By: Zoey Cruz MD, FACOG Resident Activity Tracking <Joleen Dodd DO - Last Filed: 05/03/21 08:14> Resident Involvement: Resident Care Provided Care Provided: OB Delivery
[2021-05-03] MEDS: PRENATAL VITAMIN 1 TAB PO SCH (09:10)
[2021-05-03] MEDS: DOCUSATE SODIUM 100 MG CAP PO SCH ×2 (09:11→19:39)
[2021-05-03] MEDS ORDERED: bisacodyL 5 MG TABEC PO SCH (20:00)
[2021-05-04] MEDS: IBUPROFEN 600 MG TAB PO PRN ×2 (03:36→08:24)
[2021-05-04 06:37] LABS: Hematocrit (blood only) 26.8 % (37-47); Hemoglobin 8.7 g/dL (12.0-16.0)
--- NOTE | 2021-05-04 07:40 | Obstetrical Progress Note ---
Date of Service May 04, 2021 Assessment & Plan (1) Encounter for care and examination after delivery: satisfactory course continue current care plan discharge today Subjective Ambulation: ambulating normally Voiding: no voiding problems Passing Gas:: Yes Diet Tolerance:: regular diet Lochia:: Small Feeding Type:: breast feeding (pumping) Review of Systems All systems reviewed & are unremarkable except as noted in HPI & below Physical Exam Constitutional WD/WN, vitals as above Psychiatric A+Ox3, euthymic affect Genitourinary OB Exam Abdomen: + fundal height Fundus: + firm and + relation to umbilicus (2 below U) Results & Data ([facility]) Vital Signs (Past 12 Hours) Vital Signs Temp Pulse Resp BP Pulse Ox 05/03/21 23:00 98.1 F 75 16 119/66 97
[2021-05-04] MEDS: PRENATAL VITAMIN 1 TAB PO SCH (08:22)
[2021-05-04] MEDS: DOCUSATE SODIUM 100 MG CAP PO SCH (08:22)
[2021-05-04] MEDS ORDERED: bisacodyL 5 MG TABEC PO ONE (11:33)
== END 2021-05-04 12:30 | disposition home or self-care (01) | DRG 807 ==
LOC: OPB 23:37 → 4S1 23:38 → 4S2 05-02 14:29

== ENCOUNTER 2024-09-14 07:41 | Inpatient (IN) ==
[2024-09-14] MEDS ORDERED: LIDOCAINE 1% LOCAL 20 ML VIAL INFIL PRN (08:39)
[2024-09-14] MEDS ORDERED: OXYTOCIN 30 UNITS/NSS 30 UNITS/500 ML BAG IV PRN (08:39)
[2024-09-14] MEDS ORDERED: SODIUM CHLORIDE 0.9% 500 ML IV SCH (09:15)
--- NOTE | 2024-09-14 09:17 | History & Physical Report ---
"Date of Service September 14, 2024 Assessment & Plan (1) Encounter for induction of labor: (2) Cervical shortening complicating : (3) History of : (4) Genital herpes affecting : Plan Robin is a 29yo at 40w1d admitted for IOL for postdates. Vital signs stable, continue monitoring Cordova balloon placed Continue Pitocin AROM when indicated Monitor tracing, currently Category 1 Admission and Anticipated Discharge Date Admission Date: September 14, 2024 History of Present Illness Primary Care Provider: CODY Castle Robin is a 29yo at 40w1d admitted for IOL for postdates. Has a history of spontaneous and of PTD (22wks). History of short cervix resulting in above PTD. For current , [place] [facility] [place], [place] [facility] [place]. Has genital herpes, treated with Valtrex, no active sores. Currently feeling well and in good spirits, denies complications with current . Has been feeling baby moving intermittently. Denies significant vaginal bleeding or discharge. Denies significant abdominal pain during . Urinating regularly, last BM was 1 day ago without concerns. Appetite has been good. Denies headache, chest pain, SOB, abdominal pain, vision changes, nausea/vomiting, LE pain/swelling, LE numbness/tingling. Denies recent fever, body aches, chills, sweats, cough, sore throat, constipation/diarrhea. GBS neg, Rh+, T. 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 Depression with anxiety Genital herpes simplex History of 22wk, PTD, dx with shortened cx and was on vaginal P4, had preconception MFM consult thereafter with plan if preg again, [facility], [place] Cervical shortening complicating Varicella vaccination labor 22 wk, ptd, shortened cx, Suicidal ideation Pharyngitis Surgical History (Updated 01/28/24 @ 14:16 by Yamel Perales RN) Status post colposcopy S/P dilatation and curettage H/O wisdom tooth extraction Family History Father Suicide Grandfather (Paternal) Myocardial infarction Grandfather (Maternal) Prostate cancer Other Dyslipidemia Hypertension Denies family history of Ovarian cancer Breast cancer Colorectal cancer Social History (Updated 01/28/24 @ 14:12 by Yamel Perales RN) Smoking Status: Never smoker Tobacco Type: Cigarettes Cigarettes Per Day: 3; Second Hand Exposure: No; Do You Dip or Chew Tobacco: No; Hx Alcohol Use: No Hx Substance Use: No Preferred Language: Armenian Communication Ability: Effective It Business Analyst Required: No Beliefs That Will Affect Care: None marital status: marital status details: Pancho May (33) [phone] Current Living Situation: Spouse and Family Current Living Situation Comment: lives with fob and child, dog, cat-fob changing litter current occupational status: employed current occupation: [employer] Other Information That Helps Us Care for You: No Feels Safe at Home: Yes Safety Concerns: Feels Safe At This Time Diet: regular caffeine: Yes Dental Care, Regularly: Yes Physical Activity Frequency: 3-4 Times per Week Physical Activity Frequency Comment: Walking, running/jogging. Seatbelt Use: always Sunscreen Use: Yes Sexual Activity: has been sexually active within the last 12 months Assistive Devices: None Review of Systems per HPI Physical Exam Physical Exam: Constitutional: A&Ox3, resting comfortably in no acute distress HEENT: EOM intact, PERRL Skin: warm, dry, intact CV: RRR, +s1/s2, no murmurs/rubs/gallops Respiratory: clear to auscultation b/l, no wheezes/rales/rhonchi GI/Abdomen: +BS, gravid, nontender to palpation Cervical: 1.5 | 50 | -2; uterus mid mod., estimated weight 7-8lbs Ext: warm, mild swelling up to b/l ankles but no pitting edema; no erythema or tenderness to palpation of b/l calves Neuro: no facial droop, speech intact, moves all extremities on command : FHR baseline 150, mod variability, accelerations present, decelerations absent Results & Data Vital Signs (Past 12 Hours) Vital Signs Temp Pulse Resp BP 09/14/24 07:56 86 123/65 09/14/24 07:52 36.6 C 20 Laboratory Results 09/14/24 Range/Units 09:39 WBC 9.86 (4.8-10.8) K/ul RBC 4.04 L (4.20-5.40) M/uL Hgb 10.6 L (12.0-16.0) g/dl Hct 32.8 L (37.0-47.0) % MCV 81.2 (80.0-100.0) fL MCH 26.2 (25.0-34.0) pg MCHC 32.3 (32.0-36.0) g/dL RDW Std Deviation 48.8 H (36.4-46.3) fL RDW Coeff of Adina 16.7 H (11.5-14.5) % Plt Count 178 (130-400) K/uL MPV 10.6 (9.4-12.4) fL Treponema pallidum Ab Pending Supervising Physician Co-Signing Physician Notes Resident Physician Supervision Note: I interviewed and examined the patient. Discussed with Dr. Bardales and agree with findings and plan as documented in the note. Any exceptions or clarifications are listed here: iol for postdates. cx not favorable. agreeable to cordova pit cx visualized with speculum, cordova placed through, balloon filled with 30cc sterile water, tolerated well. fetus category one. intermittent mild contractions. pitocin started. anticipate . Documented By: Zoey Cruz MD, FACOG Resident Activity Tracking Resident Involvement: Resident Care Provided Care Provided: OB Delivery (2) Cervical shortening complicating Trimester: unspecified trimester Qualified Code(s): O26.879 - Cervical shortening, unspecified trimester (4) Genital herpes affecting Trimester: unspecified trimester Qualified Code(s): O98.319 - Other infections with a predominantly sexual mode of transmission complicating , unspecified trimester; A60.09 - Herpesviral infection of other urogenital tract"
[2024-09-14] MEDS: SODIUM CHLORIDE 0.9% 1,000 ML IV SCH (09:26)
[2024-09-14] MEDS: OXYTOCIN 30 UNITS/NSS 30 UNITS/500 ML BAG IV PRN ×2 (09:28→18:41)
[2024-09-14 09:58] LABS: Hematocrit (blood only) 32.8 % (37.0-47.0); Hemoglobin 10.6 g/dl (12.0-16.0); Mean Corpuscular Hemoglobin 26.2 pg (25.0-34.0); Mean Corpuscular Hgb Conc 32.3 g/dL (32.0-36.0); Mean Corpuscular Volume 81.2 fL (80.0-100.0); Mean Platelet Volume 10.6 fL (9.4-12.4); Platelet Count 178 K/uL (130-400); RDW Coefficient of Variation 16.7 % (11.5-14.5); RDW Standard Deviation 48.8 fL (36.4-46.3); Red Blood Count 4.04 M/uL (4.20-5.40); White Blood Count 9.86 K/ul (4.8-10.8)
--- NOTE | 2024-09-14 13:31 | Labor Progress Brief Note ---
Date of Service September 14, 2024 Subjective cordova bulb fell out, ok for arom Assessment & Plan (1) Encounter for induction of labor: Plan continue current management. arom on demand. anticipate . fetus category one. Admission and Anticipated Discharge Date Admission Date: September 14, 2024 Physical Exam Physical Exam: cx--75/-2 arom clear toco--q2-4min efm--130s with mod variabiltiy, accels present, no decels Results & Data Vital Signs (Past 12 Hours) Vital Signs Temp Pulse Resp BP 09/14/24 13:24 90 127/79 09/14/24 13:11 36.9 C 09/14/24 12:36 74 103/55 L 09/14/24 12:30 18 09/14/24 12:30 36.9 C 18 09/14/24 11:31 73 122/74 09/14/24 10:31 79 124/66 09/14/24 09:28 74 126/70 09/14/24 07:56 86 123/65 09/14/24 07:52 36.6 C 20 Coding Level of Care Code None Diagnoses Encounter for induction of labor Z34.90
[2024-09-14] MEDS ORDERED: ePHEDrine sulfate 50 MG/ML AMP IV PRN (13:57)
[2024-09-14] MEDS ORDERED: NALOXONE HCL 1 MG in SODIUM CHLORIDE 0.9% 1,000 ML IV PRN (13:57)
[2024-09-14] MEDS ORDERED: LIDOCAINE 2% MPF LOCAL 5 ML VIAL EPI PRN (13:57)
[2024-09-14] MEDS ORDERED: BUPIVACAINE 0.25% PF 30 ML VIAL EPI PRN (13:57)
[2024-09-14] MEDS ORDERED: NALOXONE HCL 0.4 MG/1 ML VIAL/CARP IV PRN (13:57)
[2024-09-14] MEDS ORDERED: SODIUM CHLORIDE 0.9% PF INJ 10 ML VIAL EPI PRN (13:57)
[2024-09-14] MEDS ORDERED: fentaNYL citrate PF 100 MCG/2 ML VIAL EPI STA (13:57)
[2024-09-14] MEDS ORDERED: NALBUPHINE HCL INJ 10 MG/ML AMP IV PRN (13:57)
[2024-09-14] MEDS ORDERED: ROPIVACAINE 0.5% PF 5 MG/ML 20 ML VIAL EPI PRN (13:57)
[2024-09-14] MEDS ORDERED: SODIUM CHLORIDE 0.9% PF INJ 10 ML VIAL EPI STA (13:57)
[2024-09-14] MEDS ORDERED: diphenhydrAMINE 50 MG/ML VIAL IV PRN (13:57)
[2024-09-14] MEDS ORDERED: BUPIVACAINE 0.25% PF 30 ML VIAL EPI STA (13:57)
[2024-09-14] MEDS ORDERED: fentaNYL citrate PF 100 MCG/2 ML VIAL EPI PRN (13:57)
--- NOTE | 2024-09-14 13:58 | Anesthesiology Consultation ---
Date of Service September 14, 2024 Assessment & Plan Chart Review Chart Review: Acceptable Risk for Surgery and Patient NOT seen in Pre Admission Testing Consults Requested none History Height/Weight Height: 5 ft 5 in Weight: 91.172 kg Allergies Allergy/AdvReac Type Severity Reaction Status Date / Time No Known Drug Allergies Allergy Verified 09/12/24 08:23 Medications Home Medications Medication Instructions Recorded Confirmed Last Taken [id number] 1 tab PO DAILY 01/28/24 09/14/24 09/14/24 08:00 [ Plus] valacyclovir 500 mg tablet 500 mg PO BID 3 days #6 tabs 02/10/24 09/14/24 09/14/24 08:00 ferrous sulfate 325 mg (65 mg 325 mg PO DAILY 07/05/24 09/14/24 09/10/24 08:00 iron) tablet (Feosol) Active Medications Generic Name Dose Route Start Last Admin Trade Name Freq PRN Reason Stop Dose Admin Oxytocin 30 units in 500 mls @ 14 mls/hr 09/14/24 08:41 09/14/24 12:35 Pitocin 30 Units/Nss IV 09/16/24 08:40 0.84 units/hr .Q24H PRN 14 mls/hr Labor Induction/Augmentation Titration Protocol 0.84 UNITS/HR Sodium Chloride 1,000 mls @ 125 mls/hr 09/14/24 09:30 09/14/24 09:26 Nss IV 09/15/24 09:29 50 mls/hr .Q8H [place] Administration Past Medical History Medical History (Updated 09/14/24 @ 10:02 by Jere Bardales DO) (spontaneous vaginal delivery) 2020 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 Depression with anxiety Genital herpes simplex History of 22wk, PTD, dx with shortened cx and was on vaginal P4, had preconception MFM consult thereafter with plan if preg again, [facility], [place] Cervical shortening complicating Varicella vaccination labor 22 wk, ptd, shortened cx, Suicidal ideation Pharyngitis Past Family History Family History Father Suicide Grandfather (Paternal) Myocardial infarction Grandfather (Maternal) Prostate cancer Other Dyslipidemia Hypertension Denies family history of Ovarian cancer Breast cancer Colorectal cancer Past Surgical History Surgical History (Updated 01/28/24 @ 14:16 by Yamel Perales RN) Status post colposcopy S/P dilatation and curettage H/O wisdom tooth extraction Social History Smoking Status: Never smoker tobacco type: cigarettes Smoking cigarettes per day: 3 Do You Dip or Chew Tobacco: No Hx Alcohol Use: No Hx Substance Use: No Physical Exam Vital Signs Last Vital Signs Temp 36.9 C 09/14/24 13:11 Pulse 90 09/14/24 13:24 Resp 18 09/14/24 12:30 BP 127/79 09/14/24 13:24 Testing Laboratory Results 09/14/24 09:39
[2024-09-14] MEDS: LIDOCAINE 2%/EPINEPHRINE 1:200,000 20 ML PF EPI STA (14:12)
[2024-09-14] MEDS: fentANYL 2 MCG/ML BUPIVacaine 0.125%-NSS 100ML BAG EPI PRN (14:12)
--- NOTE | 2024-09-14 17:37 | Delivery Summary ---
Vaginal Delivery Summary Date of Service September 14, 2024 Vaginal Delivery Summary and 1st Degree LAC (left labial) Pre-operative Diagnosis: at 40 1/7 Post-operative Diagnosis: same Procedure: cordova for ripening pitocin induction arom epidural first degree laceration and left labial repair EBL: 200cc Anesthesia: epidural Procedure: The patient presented to labor and delivery for iol. She had an unfavorable cervix and cordova placed. Pitocin started. Cordova fell out. She had arom for clear fluid and then got epidural. she then progreseed to c/c/+2. The patient pushed for 4 contractions to deliver a viable female in cezar position. The nose and mouth were bulb suctioned on the perineum and the rest of the infant was then delivered without difficulty. The baby was vigorous. The nose and mouth were again bulb suctioned and the infant was placed in the maternal abdomen for drying and attention. Cord was clamped and cut at one minute of life. Cord blood and segment obtained. Placenta delivered spontaneous, intact with a three vessel cord. Cervix/sulci/rectum were intact. A first degree perineal laceration and left labial laceration was repaired in the normal standard fashion. Hemostasis obtained with dilute pitocin and fundal massage. Apgars were 8/9. Mother and baby doing well at the end of the delivery. [facility] [place] Delivery Charge Delivery Type Details: and 1st Degree LAC (left labial)
[2024-09-14] MEDS ORDERED: oxyCODONE/ACETAMINOPHEN 5mg/325mg TAB PO PRN (17:52)
[2024-09-14] MEDS ORDERED: bisacodyL 10 MG SUPP PR PRN (17:52)
[2024-09-14] MEDS ORDERED: HYDROCORTISONE ACETATE 25 MG SUPP PR PRN (17:52)
[2024-09-14] MEDS ORDERED: DIPHTHER/TETAN/PERTUS Vaccine (Tdap, Adol/Adult) 0.5mL IM ONE (17:52)
[2024-09-14] MEDS ORDERED: ACETAMINOPHEN 325 MG TAB PO PRN (17:52)
--- NOTE | 2024-09-14 18:15 | Anesthesia Procedure Note ---
Date of Service September 14, 2024 Anesthesia Post Epidural Note Vital Signs Vital Signs: Temp Pulse Resp BP Pulse Ox 37.2 C 88 20 127/59 L 98 09/14/24 15:30 09/14/24 18:02 09/14/24 18:00 09/14/24 18:02 09/14/24 17:26 Pain Intensity Bilateral Abdomen: Pain Intensity: 2 Notes Mental Status: alert / awake / arousable and participated in evaluation Nausea / Vomiting: adequately controlled Pain: adequately controlled Airway Patency, RR, SpO2: stable & adequate BP & HR: stable & adequate Hydration State: stable & adequate Neuraxial Anesthesia: was administered and sensory block is resolving Anesthetic Complications: no major complications apparent and Pt Satisfied with anesthetic care Epidural: Removed without complications and With tip intact
[2024-09-14] MEDS: fentaNYL citrate PF 100 MCG/2 ML VIAL ONE (18:53)
[2024-09-14] MEDS: ePHEDrine sulfate 50 MG/ML AMP ONE (18:53)
[2024-09-14] MEDS: BUPIVACAINE 0.25% PF 30 ML VIAL ONE (18:53)
[2024-09-14] MEDS: LIDOCAINE 2%/EPINEPHRINE 1:200,000 20 ML PF ONE (18:54)
[2024-09-14] MEDS: SODIUM CHLORIDE 0.9% PF INJ 10 ML VIAL ONE (18:54)
[2024-09-14] MEDS: fentANYL 2 MCG/ML BUPIVacaine 0.125%-NSS 100ML BAG ONE (18:54)
[2024-09-14] MEDS: IBUPROFEN 600 MG TAB PO PRN (19:07)
[2024-09-14] MEDS: BENZOCAINE 20% SPRY 85 APPLN/85 GM CAN EXT PRN (19:08)
--- NOTE | 2024-09-14 19:10 | Communication Note ---
Date of Service: September 14, 2024 ctsp because of increased bleeding and clots. Explored the vagina with large clot removed from the meme. fundus feels firm and cannot get hand into uterus. Also noted is swelling of the left labia at the site of tear. I feel mostly swelling. May be a small hematoma at the area. Will place ice and monitor. qbl after delivery is now 570cc for total of 770cc. pitocin still running and rectal cytotec given. Will monitor closely. Is otherwise asymptomatic.
[2024-09-14] MEDS: miSOPROStoL 200 MCG TAB PR ONE (19:17)
[2024-09-14] MEDS ORDERED: LIDOCAINE 2% LOCAL 20 ML VIAL ONE (20:12)
--- NOTE | 2024-09-14 21:03 | Communication Note ---
Date of Service: September 14, 2024 [facility] again by nursing. Her uterus is rock hard and not having any gushing, but found chux with 210cc of blood. Patient consented verbally for exam for other vaginal tear. Evaluation of the cervix and upper vagina reveals no tears. There is a growing hematoma of the lower left labia and oozing from this so likely the cause. sutures removed. Some clot removed from the area. Several sutures of 3-0 vicryl placed. ONe pumper was noted. the area was then noted to be better with just a bit of oozing. Perclot was placed in the base of this area and pressure was held for three minutes. Minimal bleeding then noted. The mucosa reeapproximated with interrupted sutures. More perclot was placed and pressure held. the labia was significantly smaller at this point, but still swollen. Bleeding was minimal at this point. qbl for this part was 354cc. Total qbl at this point is 1132cc.
[2024-09-14] MEDS: LIDOCAINE 1% LOCAL 20 ML VIAL ONE (22:06)
[2024-09-15 06:32] LABS: Hematocrit (blood only) 28.2 % (37.0-47.0); Hemoglobin 9.1 g/dl (12.0-16.0)
--- NOTE | 2024-09-15 06:40 | Obstetrical Progress Note ---
Date of Service September 15, 2024 Assessment & Plan (1) state: (2) Perineal laceration during delivery: Plan Robin is a 29yo day 1 s/p with 1deg perineal laceration. Feeling well this AM, VSS. Continue care Encourage ambulation and Pain control as needed Hgb: 10.6 -> 9.1, asymptomatic Plans to go home 09/16 or 09/[address] Cruz in 6wks Admission and Anticipated Discharge Date Admission Date: September 14, 2024 Supervising Physician Co-Signing Physician Notes Resident Physician Supervision Note: I interviewed and examined the patient. Discussed with Dr. Bardales and agree with findings and plan as documented in the note. Any exceptions or clarifications are listed here: Doing well. Bottom sore but doing ok. Voiding no difficulty. Significantly decreased swelling of the left vulva/labia noted, soft, appropriately tender. Continue to monitor. Minimal bleeding noted at present. Documented By: Zoey Cruz MD, FACOG Subjective Robin is a 29yo day 1 s/p with 1deg perineal laceration. Feeling well this AM, endorses some sleep overnight. Pain: endorses mainly vulval pain but controlled well topical Ambulation: yes Gas: yes Voiding: urinating, no BM yet Lochia: decreasing Diet: tolerating, appetite improving Feeds: and supplementing as needed Denies headache, chest pain, SOB, n/v/d, LE pain/swelling, LE numbness/tingling. Review of Systems Review of Systems: Denies fever, body aches, chills, sweats, vision changes, significant vaginal bleeding/discharge. Physical Exam Physical Exam: General: A&Ox3, resting comfortably in bed, in no apparent distress, nontoxic in appearance Skin: warm, dry, intact HEENT: EOM intact, PERRL b/l Cardiovascular: RRR, +s1/s2, no murmurs/rubs/gallops Pulmonary: clear to auscultation b/l, no wheezes/rales/rhonchi GI/Abd: +BS, uterine fundus firm and mildly tender to palpation, about 1 fingerwidth superior to umbilicus Extremities: no significant swelling or erythema of b/l LE, nontender to palpation, negative Navneet's b/l; warm, no clubbing or cyanosis Neuro: no facial droop, speech intact, moves all extremities on command Results & Data Vital Signs (Past 12 Hours) Vital Signs Temp Pulse Pulse Resp BP BP O2 Del Method 09/15/24 03:30 36.7 C 81 16 136/79 Room Air 09/14/24 23:30 36.8 C 77 16 120/78 Room Air 09/14/24 21:46 92 H 123/67 09/14/24 21:31 86 127/62 09/14/24 21:16 82 130/63 09/14/24 21:01 86 128/60 09/14/24 20:31 88 113/63 09/14/24 20:01 85 121/62 09/14/24 19:46 86 120/63 09/14/24 19:31 89 128/68 09/14/24 19:16 94 H 136/63 09/14/24 19:01 83 133/60 09/14/24 19:00 36.8 C 18 Laboratory Results Abnormal lab results 09/14/24 09/15/24 Range/Units 09:39 06:11 RBC 4.04 L (4.20-5.40) M/uL Hgb 10.6 L 9.1 L (12.0-16.0) g/dl Hct 32.8 L 28.2 L (37.0-47.0) % RDW Std Deviation 48.8 H (36.4-46.3) fL RDW Coeff of Adina 16.7 H (11.5-14.5) % Resident Activity Tracking Resident Involvement: Resident Care Provided Care Provided: OB Delivery (2) Perineal laceration during delivery Perineal laceration degree: first degree Qualified Code(s): O70.0 - First degree perineal laceration during delivery
[2024-09-15] MEDS: DOCUSATE SODIUM 100 MG CAP PO SCH (07:36)
[2024-09-15] MEDS: PRENATAL VITAMIN 1 TAB PO SCH (07:36)
[2024-09-15] MEDS: bisacodyL 5 MG TABEC PO SCH (20:45)
[2024-09-15 22:52] VITALS: RESP 16
--- NOTE | 2024-09-16 06:12 | Obstetrical Progress Note ---
Date of Service September 16, 2024 Assessment & Plan (1) state: (2) Perineal laceration during delivery: Plan Robin is a 29yo day 2 s/p with 1deg perineal laceration. Feeling well this AM, VSS. Continue care Encourage ambulation and Pain control as needed Hgb: 10.6 -> 9.1 on 09/15/24, asymptomatic Plans to go home today Followup with Dr. Cruz in 6wks Admission and Anticipated Discharge Date Admission Date: September 14, 2024 Supervising Physician Co-Signing Physician Notes Resident Physician Supervision Note: I interviewed and examined the patient. Discussed with Dr. Bardales and agree with findings and plan as documented in the note. Any exceptions or clarifications are listed here: PPD#2 doing well. DC home today. Reviewed DC instructions, follow up 6w PP in office. Documented By: Adriana Boogie, DO Subjective Roibn is a 29yo day 2 s/p with 1deg perineal laceration. Feeling well this AM, endorses some sleep overnight. Pain: endorses mainly vulval pain but controlled well topical Ambulation: yes Gas: yes Voiding: urinating, no BM yet Lochia: decreasing Diet: tolerating well Feeds: mainly formula now, will resume as milk comes in more Denies headache, chest pain, SOB, n/v/d, LE pain/swelling, LE numbness/tingling. Review of Systems Review of Systems: Denies fever, body aches, chills, sweats, vision changes, significant vaginal bleeding/discharge. Physical Exam Physical Exam: General: A&Ox3, resting comfortably in bed, in no apparent distress, nontoxic in appearance Skin: warm, dry, intact HEENT: EOM intact, PERRL b/l Cardiovascular: RRR, +s1/s2, no murmurs/rubs/gallops Pulmonary: clear to auscultation b/l, no wheezes/rales/rhonchi GI/Abd: +BS, uterine fundus firm and mildly tender to palpation, at level of umbilicus and slightly R of midline Extremities: no significant swelling or erythema of b/l LE, nontender to palpation, negative Navneet's b/l; warm, no clubbing or cyanosis Neuro: no facial droop, speech intact, moves all extremities on command Results & Data Vital Signs (Past 12 Hours) Vital Signs Temp Pulse Resp BP Pulse Ox O2 Del Method 09/15/24 22:49 36.8 C 74 16 122/71 96 Room Air 09/15/24 18:56 36.4 C L 71 18 138/73 97 Room Air Resident Activity Tracking Resident Involvement: Resident Care Provided Care Provided: OB Delivery (2) Perineal laceration during delivery Perineal laceration degree: first degree Qualified Code(s): O70.0 - First degree perineal laceration during delivery
[2024-09-16 07:55] VITALS: TEMP 98.1; O2SAT 98
[2024-09-16 09:55] VITALS: BP 136/79; PULSE 81
== END 2024-09-16 10:40 | disposition home or self-care (01) | DRG 806 ==
LOC: 4S1 07:41 → 4E2 22:20
DX: Z37.0 Single live birth; O98.32 Other infections with a predominantly sexual mode of transmission complicating childbirth; A60.09 Herpesviral infection of other urogenital tract; O48.0 Post-term pregnancy; O26.873 Cervical shortening, third trimester; Z87.59 Personal history of other complications of pregnancy, childbirth and the puerperium; Z3A.40 40 weeks gestation of pregnancy; O90.2 Hematoma of obstetric wound; O70.0 First degree perineal laceration during delivery